=== PATIENT | female | born 1950 | race Caucasian/White ===

== ENCOUNTER → 2017-12-25 13:37 | Outpatient (CLI) | payer MEDICARE, SELFPAY ==
--- NOTE | 2017-12-25 13:38 | CT_ITS ---
STUDY: CT CHEST WITHOUT CONTRAST REASON FOR EXAM: Female, 67 years old. Lung nodule. RADIATION DOSAGE (If Supplied By Facility): CTDIvol = ( 8.43 ) mGy, DLP = ( 243.83 ) mGycm TECHNIQUE: Transaxial imaging was performed without the administration of intravenous contrast material. Multiplanar coronal and sagittal images were reformatted. Individualized dose optimization techniques were used for this CT. COMPARISON: May 14, 2015 and December 01, 2015 FINDINGS: Multiple thyroid nodules measuring up to 2.6 cm with substernal extension on the left. There is stable 0.6 cm right lower lobe nodule, series 4 image 118/210. There is stable 0.6 cm nodule adjacent to the pleura in the right lower lobe, series 4 image 106/210. There is stable 0.4 cm right middle lobe, series 4 image 109/210. There is no demonstrated pleural effusion. Normal heart and pericardium. Normal mediastinum. Normal hilar regions. Normal unenhanced pulmonary arteries. Normal aorta arch and descending thoracic aorta. There are multi-level degenerative changes of the thoracic spine. There is no demonstrated abnormality of the visualized upper abdomen. CT/Chest without Contrast IMPRESSION: Stable pulmonary nodules. Stable thyroid nodules. Electronically Signed: Negro Felder MD at 17:47 EDT , Service support ,
== END ==
PROVIDERS: Family Provider Internal Medicine; PCP Internal Medicine; Visit Provider Internal Medicine Critical Care Medicine
DX: R91.1 Solitary pulmonary nodule (principal)
CPT/HCPCS: 71250

== ENCOUNTER → 2018-02-06 09:55 | Outpatient (CLI) | payer MEDICARE, SELFPAY ==
[2018-02-06 12:07] LABS: Cholesterol 176 mg/dL (200); High Density Lipoprotein 87 mg/dL; Triglycerides 78 mg/dL; Very Low Density Lipoprotein 16 mg/dL (5-40)
[2018-02-06 12:14] LABS: Hemoglobin A1c 6.1 % (4.2-6.3)
[2018-02-07 09:55] LABS: Vitamin B12 1055 pg/mL (211-911); Vitamin D,25 Hydroxy 39.9 ng/mL (29.95-100.01)
== END ==
PROVIDERS: Family Provider Internal Medicine; PCP Internal Medicine; Visit Provider Nurse Practitioner Family
DX: E53.8 Deficiency of other specified B group vitamins (principal); I65.29 Occlusion and stenosis of unspecified carotid artery; M85.80 Other specified disorders of bone density and structure, unspecified site; E11.9 Type 2 diabetes mellitus without complications
CPT/HCPCS: 36415; 80061; 82306; 82607; 83036